=== PATIENT | female | born 1980 | race African-American/Black ===

== ENCOUNTER 2024-07-24 17:22 | Emergency (ER) | payer MEDICAID ==
[~2024-07-24] VITALS: Ht 170.2 cm; Wt 91.0 kg
[2024-07-24 17:27] VITALS: BP 161/97; PULSE 88; RESP 20; TEMP 98; O2SAT 98
== END 2024-07-24 19:09 | disposition left against medical advice (07) ==
LOC: ER 17:22
DX: R07.9 Chest pain, unspecified (principal); Z53.21 Procedure and treatment not carried out due to patient leaving prior to being seen by health care provider